=== PATIENT | male | born 1975 | race Caucasian/White ===

== ENCOUNTER 2019-09-15 20:58 | Observation (INO) ==
[2019-09-15] MEDS ORDERED: 0.9 % Sodium Chloride 1,000 ML IVC ONE (21:07)
[2019-09-15] MEDS ORDERED: Insulin Regular, Human 100 UNIT/ML SQ ONE ×2 (21:14→22:42)
[2019-09-15] MEDS ORDERED: 0.9 % Sodium Chloride 1,000 ML IVC SCH ×2 (21:15→22:26)
[2019-09-15 21:30] LABS: Bilirubin,Urine Negative (Negative); Blood,Urine Trace-intact (Negative); Clarity,Urine Clear (Clear); Color,Urine Yellow (Yellow); Glucose,Urine (UA) >=1000 mg/dL (Normal); Ketones,Urine Negative (Negative); Leukocyte Esterase,Urine Negative (Negative); Nitrite,Urine Negative (Negative); Protein,Urine Trace mg/dL (Neg-Trace); Urobilinogen,Urine Normal (Normal)
[2019-09-15 21:34] LABS: VBG HCO3 19 mEq/L (21-27); VBG PCO2 36 mmHg (41-51); VBG PH 7.33 pH Units (7.32-7.42); VBG PO2 71 mmHg (25-50)
[2019-09-15 21:38] LABS: Basophils % 0.3 %; Eosinophils # 0.2 K/mcL (0.0-0.6); Eosinophils % 2.3 %; Hematocrit 39.8 % (37.5-50.1); Hemoglobin 13.4 g/dL (12.9-16.9); Immature Granulocytes % 0.4 % (0-4); Lymphocytes % 19.9 %; Mean Corpuscular HGB Conc 33.7 g/dL (31.6-35.5); Mean Corpuscular Hemoglobin 30.5 pg (28.0-33.3); Mean Corpuscular Volume 90.7 fL (83.0-100.0); Mean Platelet Volume 10.6 fL (9.4-12.4); Monocytes # 1.1 K/mcL (0.0-1.3); Neutrophils # 6.6 K/mcL (1.6-8.9); Platelet Count 243 K/mcL (140-400); Red Blood Count 4.39 M/mcL (4.19-5.50); Red Cell Distribution Width 12.9 % (11.5-14.5); Segmented Neutrophils % 66.1 %
[2019-09-15 21:46] LABS: Amphetamine Screen,Urine Negative ng/mL (Cutoff=1000); Barbiturate Screen,Urine Negative ng/mL (Cutoff=200); Benzodiazepines Screen,Urine Negative ng/mL (Cutoff=200); Cannabinoid Screen,Urine Negative ng/mL (Cutoff = 50); Cocaine Screen,Urine Negative ng/mL (Cutoff= 300); Opiate Screen,Urine Negative ng/mL (Cutoff=300); Phencyclidine Screen,Urine Negative ng/mL (Cutoff=25)
[2019-09-15 21:56] LABS: Albumin 3.3 g/dL (3.5-5.7); Albumin/Globulin Ratio 0.8 (1.1-2.2); Bilirubin,Direct 0.1 mg/dL (0.0-0.2); Bilirubin,Indirect 0.3 mg/dL (0.0-1.0); Bilirubin,Total 0.4 mg/dL (0.3-1.0); Globulin 4.3 g/dL (2.4-3.5); Total Protein 7.6 g/dL (6.4-8.9)
[2019-09-15 22:02] LABS: BUN/Creatinine Ratio 19 (6-26); Blood Urea Nitrogen 28 mg/dL (6-20); Calcium 9.2 mg/dL (8.6-10.3); Carbon Dioxide 19 mEq/L (23-29); Chloride 91 mEq/L (98-107); Ethanol < 10 mg/dL (Less than 10); Glucose 843 mg/dL (70-105); Osmolality,Calculated 299 (280-300); Potassium 4.7 mEq/L (3.5-5.1); Sodium 121 mEq/L (136-145); eGFR For African Americans > 60 (> 60); eGFR For Non-African Americans 54 (> 60)
[2019-09-15] MEDS ORDERED: Naloxone 0.4 MG/ML INJ IVP PRN (23:01)
[2019-09-15] MEDS ORDERED: Ibuprofen 400 MG TABLET PO PRN (23:01)
[2019-09-15] MEDS ORDERED: Ondansetron ODT 4 MG TAB.RAPDIS SL PRN (23:01)
[2019-09-15] MEDS ORDERED: Acetaminophen 325 MG TABLET PO PRN (23:01)
[2019-09-15] MEDS ORDERED: D5% in Water 1,000 ML IVC PRN (23:01)
[2019-09-15] MEDS ORDERED: MOM Conc 10 ML UD.LIQ PO PRN (23:01)
[2019-09-15] MEDS ORDERED: *HR* Dextrose 50 % in Water (Vial) 50 ML VIAL IVP PRN (23:01)
[2019-09-15] MEDS ORDERED: Mag Hydrox/Al Hydrox/Simeth 30 ML UDC PO PRN (23:01)
[2019-09-15] MEDS ORDERED: Dextrose Gel 15 GM/37.5 ML TUBE PO PRN ×2 (23:01)
[2019-09-15] MEDS: 0.9 % Sodium Chloride 1,000 ML IVC SCH (23:30)
[2019-09-15] MEDS: hydrOXYzine pamoate 25 MG CAPSULE PO SCH (23:33)
[2019-09-15] MEDS ORDERED: Insulin DETEMIR 100 UNIT/ML per UNIT SQ ONE (23:45)
[2019-09-16] MEDS: Insulin LISPRO 300 UNITS/3 ML VIAL SQ SCH ×5 (00:10→16:44)
[2019-09-16] MEDS: Mirtazapine 15 MG TABLET PO SCH ×2 (00:10→20:01)
[2019-09-16] MEDS: Gabapentin 400 MG CAPSULE PO SCH ×4 (00:10→20:01)
[2019-09-16] MEDS: hydrOXYzine pamoate 25 MG CAPSULE PO SCH ×3 (04:15→16:09)
[2019-09-16] MEDS ORDERED: 0.9 % Sodium Chloride 1,000 ML IVC SCH (07:30)
[2019-09-16 07:44] LABS: BUN/Creatinine Ratio 21 (6-26); Blood Urea Nitrogen 26 mg/dL (6-20); Calcium 8.5 mg/dL (8.6-10.3); Carbon Dioxide 21 mEq/L (23-29); Chloride 102 mEq/L (98-107); Glucose 277 mg/dL (70-105); Osmolality,Calculated 287 (280-300); Potassium 3.9 mEq/L (3.5-5.1); Sodium 131 mEq/L (136-145); eGFR For African Americans > 60 (> 60); eGFR For Non-African Americans > 60 (> 60)
[2019-09-16] MEDS: amLODIPine 5 MG TABLET PO SCH (07:50)
[2019-09-16] MEDS: ARIPiprazole 5 MG TABLET PO SCH (07:50)
[2019-09-16] MEDS: lisinopriL 10 MG TABLET PO SCH (07:50)
[2019-09-16] MEDS: Multivit/Ca/Min/Fe/FA 1 TAB TABLET PO SCH (07:50)
[2019-09-16] MEDS: Aspirin Enteric Coated 81 MG Tablet PO SCH (07:50)
[2019-09-16] MEDS ORDERED: Dextrose Gel 15 GM/37.5 ML TUBE PO PRN ×4 (10:57→11:00)
[2019-09-16] MEDS ORDERED: *HR* Dextrose 50 % in Water (Vial) 50 ML VIAL IVP PRN (10:57)
[2019-09-16] MEDS ORDERED: D5% in Water 1,000 ML IVC PRN ×2 (10:57→11:00)
[2019-09-16] MEDS ORDERED: *HR* Dextrose 50 % in Water (Syg) 50 ML SYRINGE IVP PRN (11:00)
[2019-09-16 12:25] LABS: Estimated Average Glucose 315 mg/dl
[2019-09-16] MEDS ORDERED: Mirtazapine 15 MG TABLET PO SCH (21:00)
[2019-09-16] MEDS ORDERED: OLANZapine 10 MG TAB.RAPDIS PO SCH (21:00)
[2019-09-16] MEDS ORDERED: Insulin LISPRO 300 UNITS/3 ML VIAL SQ SCH (21:00)
[2019-09-16] MEDS ORDERED: Insulin DETEMIR 100 UNIT/ML X5UNITS SQ SCH (21:00)
[2019-09-16] MEDS ORDERED: Insulin Human Regular 10 UNIT in 0.9 % Sodium Chloride 10 ML IV ONE (21:52)
[2019-09-16] MEDS ORDERED: Insulin Regular, Human 100 UNIT/ML SQ ONE (22:38)
[2019-09-17] MEDS: hydrOXYzine pamoate 25 MG CAPSULE PO SCH ×3 (00:27→12:44)
[2019-09-17] MEDS: 0.9 % Sodium Chloride 1,000 ML IVC SCH (02:54)
[2019-09-17 06:42] VITALS: BP 145/95
[2019-09-17 07:26] LABS: Hemoglobin 13.3 g/dL (12.9-16.9); Mean Corpuscular Hemoglobin 31.1 pg (28.0-33.3); Mean Corpuscular Volume 88.8 fL (83.0-100.0); Mean Platelet Volume 10.5 fL (9.4-12.4); Platelet Count 229 K/mcL (140-400); Red Blood Count 4.28 M/mcL (4.19-5.50); White Blood Count 7.9 K/mcL (4.3-11.1)
[2019-09-17 07:47] LABS: BUN/Creatinine Ratio 18 (6-26); Blood Urea Nitrogen 22 mg/dL (6-20); Calcium 8.6 mg/dL (8.6-10.3); Carbon Dioxide 21 mEq/L (23-29); Chloride 105 mEq/L (98-107); Glucose 290 mg/dL (70-105); Osmolality,Calculated 288 (280-300); Potassium 4.4 mEq/L (3.5-5.1); Sodium 132 mEq/L (136-145); eGFR For African Americans > 60 (> 60); eGFR For Non-African Americans > 60 (> 60)
[2019-09-17] MEDS: Insulin LISPRO 300 UNITS/3 ML VIAL SQ SCH ×2 (08:42→12:44)
[2019-09-17] MEDS: ARIPiprazole 5 MG TABLET PO SCH (08:44)
[2019-09-17] MEDS: Aspirin Enteric Coated 81 MG Tablet PO SCH (08:44)
[2019-09-17] MEDS: Gabapentin 400 MG CAPSULE PO SCH (08:44)
[2019-09-17] MEDS: amLODIPine 5 MG TABLET PO SCH (08:44)
[2019-09-17] MEDS: Multivit/Ca/Min/Fe/FA 1 TAB TABLET PO SCH (08:45)
[2019-09-17] MEDS: lisinopriL 10 MG TABLET PO SCH (08:45)
[2019-09-17] MEDS ORDERED: Insulin DETEMIR 100 UNIT/ML X5UNITS SQ SCH (21:00)
== END 2019-09-17 13:05 | disposition home or self-care (01) ==
LOC: INPPIK 20:58 → EMEROOPIK 20:58 → INPPIK 22:59
PROVIDERS: ADMIT Family Medicine; ATTEND Family Medicine